=== PATIENT | female | born 1950 | race Two or more races ===

== ENCOUNTER 2018-09-08 11:19 | Outpatient (CLI) | payer MEDICARE ==
[~2018-09-08] VITALS: Ht 152.4 cm; Wt 78.9 kg
== END 2018-09-08 13:19 | disposition home or self-care (01) ==
LOC: ECT 11:19
DX: F33.2 Major depressive disorder, recurrent severe without psychotic features (principal); F34.1 Dysthymic disorder; R73.03 Prediabetes; I70.0 Atherosclerosis of aorta; K21.9 Gastro-esophageal reflux disease without esophagitis; G89.4 Chronic pain syndrome; E78.5 Hyperlipidemia, unspecified; E03.9 Hypothyroidism, unspecified; G50.0 Trigeminal neuralgia; M85.80 Other specified disorders of bone density and structure, unspecified site

== ENCOUNTER 2018-09-12 05:06 | Outpatient (RCR) | payer MEDICARE ==
[~2018-09-12] VITALS: Ht 152.4 cm; Wt 78.9 kg
[2018-09-12] MEDS ORDERED: Methohexital Sodium 500mg Vial IVP ONE (05:07)
[2018-09-12] MEDS ORDERED: Excedrin Migraine tab ONE (05:07)
[2018-09-12] MEDS ORDERED: NS 500ML ONE ×3 (05:07)
[2018-09-12] MEDS ORDERED: Ketorolac 60mg Inj IM ONE ×3 (05:07)
[2018-09-12] MEDS ORDERED: Methohexital Sodium Syr 100mg/10ml IVP ONE ×2 (05:07)
[2018-09-12] MEDS ORDERED: Succinylcholine 20mg/ml 10ml vial ONE ×3 (05:07)
[2018-09-12] MEDS ORDERED: SUMAtriptan 6mg/0.5ml Inj SUBQ ONE ×2 (05:07)
[2018-09-12] MEDS ORDERED: Excedrin tab (non formulary) ONE (05:07)
[2018-09-12 09:20] VITALS: BP 132/60
[2018-09-12] MEDS ORDERED: Sodium Chloride 500ML 500 ML IV ONE (09:38)
[2018-09-12] MEDS ORDERED: Excedrin Migraine tab ORAL PRN (09:38)
[2018-09-12 09:40] VITALS: BP 134/53
[2018-09-12 09:45] VITALS: BP 126/54
[2018-09-12 09:50] VITALS: BP 127/56
[2018-09-12 09:55] VITALS: BP 129/51
[2018-09-14 09:01] VITALS: BP 122/65
[2018-09-14] MEDS ORDERED: Sodium Chloride 500ML 500 ML IV ONE (09:17)
[2018-09-14 09:20] VITALS: BP 141/58
[2018-09-14 09:25] VITALS: BP 136/61
[2018-09-14 09:30] VITALS: BP 135/56
[2018-09-14 09:35] VITALS: BP 137/58
[2018-09-16 08:46] VITALS: BP 128/68
[2018-09-16] MEDS ORDERED: Excedrin Migraine tab ORAL PRN (08:59)
[2018-09-16] MEDS ORDERED: Sodium Chloride 500ML 500 ML IV ONE (08:59)
[2018-09-16 09:00] VITALS: BP 146/55
[2018-09-16 09:05] VITALS: BP 144/61
[2018-09-16 09:10] VITALS: BP 145/50
[2018-09-16 09:15] VITALS: BP 144/58
[2018-09-19] MEDS ORDERED: SUMAtriptan 6mg/0.5ml Inj SUBQ ONE (07:00)
[2018-09-19] MEDS ORDERED: NS 500ML ONE (07:00)
[2018-09-19] MEDS ORDERED: Excedrin Migraine tab ONE (07:00)
[2018-09-19] MEDS ORDERED: Succinylcholine 20mg/ml 10ml vial ONE (07:00)
[2018-09-19] MEDS ORDERED: Methohexital Sodium Syr 100mg/10ml IVP ONE (07:00)
[2018-09-19] MEDS ORDERED: Ketorolac 60mg Inj IM ONE (07:00)
[2018-09-19 09:37] VITALS: BP 119/60
[2018-09-19] MEDS ORDERED: Sodium Chloride 500ML 500 ML IV ONE ×2 (10:03)
[2018-09-19] MEDS ORDERED: Excedrin Migraine tab ORAL PRN (10:03)
[2018-09-19] MEDS ORDERED: Atropine Sulfate 0.4mg/ml inj IVP PRN ×2 (10:03)
[2018-09-19 10:05] VITALS: BP 125/61
[2018-09-19 10:10] VITALS: BP 138/51
[2018-09-19 10:15] VITALS: BP 135/48
[2018-09-19 10:20] VITALS: BP 141/50
[2018-09-21 09:55] VITALS: BP 104/58
[2018-09-21] MEDS ORDERED: Sodium Chloride 500ML 500 ML IV ONE (10:22)
[2018-09-21] MEDS ORDERED: Excedrin Migraine tab ORAL PRN (10:22)
[2018-09-21] MEDS ORDERED: Atropine Sulfate 0.4mg/ml inj IVP PRN (10:22)
[2018-09-21 10:25] VITALS: BP 129/56
[2018-09-21 10:30] VITALS: BP 135/55
[2018-09-21 10:35] VITALS: BP 143/57
[2018-09-21 10:40] VITALS: BP 134/53
[2018-09-21] MEDS ORDERED: Excedrin Migraine tab ONE (13:03)
[2018-09-21] MEDS ORDERED: Ketorolac 60mg Inj IM ONE (13:03)
[2018-09-21] MEDS ORDERED: Methohexital Sodium Syr 100mg/10ml IVP ONE (13:03)
[2018-09-21] MEDS ORDERED: Succinylcholine 20mg/ml 10ml vial ONE (13:03)
[2018-09-21] MEDS ORDERED: NS 500ML ONE (13:03)
[2018-09-21] MEDS ORDERED: SUMAtriptan 6mg/0.5ml Inj SUBQ ONE (13:03)
== END 2018-09-21 | disposition home or self-care (01) ==
LOC: ECT 05:06
DX: F33.2 Major depressive disorder, recurrent severe without psychotic features (principal); F34.1 Dysthymic disorder; R73.03 Prediabetes; E78.5 Hyperlipidemia, unspecified; I70.0 Atherosclerosis of aorta; E03.9 Hypothyroidism, unspecified; K21.9 Gastro-esophageal reflux disease without esophagitis; G50.0 Trigeminal neuralgia; G89.4 Chronic pain syndrome; M85.80 Other specified disorders of bone density and structure, unspecified site
CPT/HCPCS: 90870; J0330; J2405; J3030; J3490; J7040

== ENCOUNTER 2018-09-23 07:17 | Outpatient (RCR) | payer MEDICARE ==
[~2018-09-23] VITALS: Ht 152.4 cm; Wt 78.9 kg
[2018-09-23] MEDS ORDERED: SUMAtriptan 6mg/0.5ml Inj SUBQ ONE (07:18)
[2018-09-23] MEDS ORDERED: Succinylcholine 20mg/ml 10ml vial ONE (07:18)
[2018-09-23] MEDS ORDERED: Methohexital Sodium 500mg Vial IVP ONE (07:18)
[2018-09-23] MEDS ORDERED: Ketorolac 60mg Inj IM ONE (07:18)
[2018-09-23] MEDS ORDERED: NS 500ML ONE (07:18)
[2018-09-23] MEDS ORDERED: Excedrin tab (non formulary) ONE (07:18)
[2018-09-23 09:19] VITALS: BP 151/61
[2018-09-23] MEDS ORDERED: Excedrin Migraine tab ORAL PRN (09:54)
[2018-09-23] MEDS ORDERED: Atropine Sulfate 0.4mg/ml inj IVP PRN (09:54)
[2018-09-23] MEDS ORDERED: Sodium Chloride 500ML 500 ML IV ONE (09:54)
[2018-09-23 09:55] VITALS: BP 134/74
[2018-09-23 10:00] VITALS: BP 143/64
[2018-09-23 10:05] VITALS: BP 155/60
[2018-09-23 10:10] VITALS: BP 151/60
[2018-09-28] MEDS ORDERED: Excedrin Migraine tab ONE (07:00)
[2018-09-28] MEDS ORDERED: SUMAtriptan 6mg/0.5ml Inj SUBQ ONE (07:00)
[2018-09-28] MEDS ORDERED: Succinylcholine 20mg/ml 10ml vial ONE (07:00)
[2018-09-28] MEDS ORDERED: Ketorolac 60mg Inj IM ONE (07:00)
[2018-09-28] MEDS ORDERED: NS 500ML ONE (07:00)
[2018-09-28] MEDS ORDERED: Methohexital Sodium Syr 100mg/10ml IVP ONE (07:00)
[2018-09-28 10:05] VITALS: BP 131/65
[2018-09-28] MEDS ORDERED: Excedrin Migraine tab ORAL PRN (10:19)
[2018-09-28] MEDS ORDERED: Sodium Chloride 500ML 500 ML IV ONE (10:19)
[2018-09-28 10:20] VITALS: BP 140/59
[2018-09-28 10:25] VITALS: BP 132/53
[2018-09-28 10:30] VITALS: BP 128/54
[2018-09-28 10:35] VITALS: BP 127/51
[2018-10-19] MEDS ORDERED: SUMAtriptan 6mg/0.5ml Inj SUBQ ONE (07:00)
[2018-10-19] MEDS ORDERED: Excedrin tab (non formulary) ONE (07:00)
[2018-10-19] MEDS ORDERED: Succinylcholine 20mg/ml 10ml vial ONE (07:00)
[2018-10-19] MEDS ORDERED: NS 500ML ONE (07:00)
[2018-10-19] MEDS ORDERED: Ketorolac 60mg Inj IM ONE (07:00)
[2018-10-19] MEDS ORDERED: Methohexital Sodium Syr 100mg/10ml IVP ONE (07:00)
[2018-10-19 11:20] VITALS: BP 130/78
[2018-10-19] MEDS ORDERED: Excedrin Migraine tab ORAL PRN (11:39)
[2018-10-19] MEDS ORDERED: Sodium Chloride 500ML 500 ML IV ONE (11:39)
[2018-10-19 11:40] VITALS: BP 151/66
[2018-10-19 11:45] VITALS: BP 147/62
[2018-10-19 11:50] VITALS: BP 148/62
[2018-10-19 11:55] VITALS: BP 138/64
[2018-10-21 09:27] VITALS: BP 148/72
[2018-10-21] MEDS ORDERED: Excedrin Migraine tab ORAL PRN (09:41)
[2018-10-21] MEDS ORDERED: Sodium Chloride 500ML 500 ML IV ONE (09:41)
[2018-10-21 09:45] VITALS: BP 154/68
[2018-10-21 09:50] VITALS: BP 160/66
[2018-10-21 09:55] VITALS: BP 162/67
[2018-10-21 09:56] VITALS: BP 158/71
[2018-10-21] MEDS ORDERED: NS 500ML ONE (11:56)
[2018-10-21] MEDS ORDERED: Excedrin Migraine tab ONE (11:56)
[2018-10-21] MEDS ORDERED: Succinylcholine 20mg/ml 10ml vial ONE (11:56)
[2018-10-21] MEDS ORDERED: SUMAtriptan 6mg/0.5ml Inj SUBQ ONE (11:56)
[2018-10-21] MEDS ORDERED: Ketorolac 60mg Inj IM ONE (11:56)
[2018-10-21] MEDS ORDERED: Methohexital Sodium Syr 100mg/10ml IVP ONE (11:56)
== END 2018-10-21 | disposition home or self-care (01) ==
LOC: ECT 07:17
DX: F33.2 Major depressive disorder, recurrent severe without psychotic features (principal)
CPT/HCPCS: 90870; J0330; J2405; J3030; J3490; J7040

== ENCOUNTER 2018-10-24 07:24 | Outpatient (RCR) | payer MEDICARE ==
[~2018-10-24] VITALS: Ht 152.4 cm; Wt 79.2 kg
[2018-10-24] MEDS ORDERED: Excedrin Migraine tab ONE (07:25)
[2018-10-24] MEDS ORDERED: NS 500ML ONE ×3 (07:25)
[2018-10-24] MEDS ORDERED: Succinylcholine 20mg/ml 10ml vial ONE ×2 (07:25)
[2018-10-24] MEDS ORDERED: SUMAtriptan 6mg/0.5ml Inj SUBQ ONE ×2 (07:25)
[2018-10-24] MEDS ORDERED: Ketorolac 60mg Inj IM ONE ×2 (07:25)
[2018-10-24] MEDS ORDERED: Methohexital Sodium Syr 100mg/10ml IVP ONE ×2 (07:25)
[2018-10-24] MEDS ORDERED: Excedrin tab (non formulary) ONE (07:25)
[2018-10-24 10:22] VITALS: BP 137/76
[2018-10-24] MEDS ORDERED: Sodium Chloride 500ML 500 ML IV ONE (10:48)
[2018-10-24] MEDS ORDERED: Excedrin Migraine tab ORAL PRN (10:48)
[2018-10-24 10:50] VITALS: BP 157/71
[2018-10-24 10:55] VITALS: BP 170/70
[2018-10-24 11:00] VITALS: BP_SYST 157; BP_SYST 173; BP_DIAS 78; BP_DIAS 79
[2018-10-26] MEDS ORDERED: NS 500ML ONE (08:00)
[2018-10-26] MEDS ORDERED: Excedrin Migraine tab ONE (08:00)
[2018-10-26] MEDS ORDERED: SUMAtriptan 6mg/0.5ml Inj SUBQ ONE (08:00)
[2018-10-26] MEDS ORDERED: Ketorolac 60mg Inj IM ONE (08:00)
[2018-10-26] MEDS ORDERED: Methohexital Sodium Syr 100mg/10ml IVP ONE (08:00)
[2018-10-26] MEDS ORDERED: Succinylcholine 20mg/ml 10ml vial ONE (08:00)
[2018-10-26 09:19] VITALS: BP 110/62
[2018-10-26 09:45] VITALS: BP 115/45
[2018-10-26 09:50] VITALS: BP 103/48
[2018-10-26 09:55] VITALS: BP 111/47
[2018-10-26 10:00] VITALS: BP 113/51
[2018-10-26] MEDS ORDERED: Excedrin Migraine tab ORAL PRN (14:30)
[2018-10-26] MEDS ORDERED: Sodium Chloride 500ML 500 ML IV ONE (14:30)
[2018-10-28] MEDS ORDERED: Ketorolac 60mg Inj IM ONE (08:00)
[2018-10-28] MEDS ORDERED: NS 500ML ONE (08:00)
[2018-10-28] MEDS ORDERED: SUMAtriptan 6mg/0.5ml Inj SUBQ ONE (08:00)
[2018-10-28] MEDS ORDERED: Methohexital Sodium Syr 100mg/10ml IVP ONE (08:00)
[2018-10-28] MEDS ORDERED: Excedrin Migraine tab ONE (08:00)
[2018-10-28] MEDS ORDERED: Succinylcholine 20mg/ml 10ml vial ONE (08:00)
[2018-10-28 08:55] VITALS: BP 126/61
[2018-10-28] MEDS ORDERED: Excedrin Migraine tab ORAL PRN (09:18)
[2018-10-28] MEDS ORDERED: Sodium Chloride 500ML 500 ML IV ONE (09:18)
[2018-10-28 09:20] VITALS: BP 148/51
[2018-10-28 09:25] VITALS: BP 154/54
[2018-10-28 09:30] VITALS: BP 150/56
[2018-10-28 09:35] VITALS: BP 144/61
[2018-10-31] MEDS ORDERED: SUMAtriptan 6mg/0.5ml Inj SUBQ ONE (08:00)
[2018-10-31] MEDS ORDERED: Excedrin Migraine tab ONE (08:00)
[2018-10-31] MEDS ORDERED: Succinylcholine 20mg/ml 10ml vial ONE (08:00)
[2018-10-31] MEDS ORDERED: NS 500ML ONE (08:00)
[2018-10-31] MEDS ORDERED: Methohexital Sodium Syr 100mg/10ml IVP ONE (08:00)
[2018-10-31] MEDS ORDERED: Ketorolac 60mg Inj IM ONE (08:00)
[2018-10-31 08:44] VITALS: BP 128/68
[2018-10-31] MEDS ORDERED: Excedrin Migraine tab ORAL PRN (08:59)
[2018-10-31] MEDS ORDERED: Sodium Chloride 500ML 500 ML IV ONE (08:59)
[2018-10-31 09:00] VITALS: BP 136/54
[2018-10-31 09:05] VITALS: BP 141/56
[2018-10-31 09:10] VITALS: BP 145/56
[2018-10-31 09:15] VITALS: BP 146/58
[2018-11-02] MEDS ORDERED: Ketorolac 60mg Inj IM ONE (08:00)
[2018-11-02] MEDS ORDERED: SUMAtriptan 6mg/0.5ml Inj SUBQ ONE (08:00)
[2018-11-02] MEDS ORDERED: NS 500ML ONE (08:00)
[2018-11-02] MEDS ORDERED: Excedrin Migraine tab ONE (08:00)
[2018-11-02] MEDS ORDERED: Succinylcholine 20mg/ml 10ml vial ONE (08:00)
[2018-11-02] MEDS ORDERED: Methohexital Sodium Syr 100mg/10ml IVP ONE (08:00)
[2018-11-02 09:07] VITALS: BP 125/61
[2018-11-02] MEDS ORDERED: Excedrin Migraine tab ORAL PRN (09:31)
[2018-11-02] MEDS ORDERED: Sodium Chloride 500ML 500 ML IV ONE (09:31)
[2018-11-02 09:35] VITALS: BP 133/59
[2018-11-02 09:40] VITALS: BP 139/56
[2018-11-02 09:45] VITALS: BP 133/65
[2018-11-02 09:50] VITALS: BP 141/53
[2018-11-04 09:01] VITALS: BP 151/71
[2018-11-04] MEDS ORDERED: Sodium Chloride 500ML 500 ML IV ONE (09:16)
[2018-11-04] MEDS ORDERED: Excedrin Migraine tab ORAL PRN (09:16)
[2018-11-04 09:20] VITALS: BP 146/63
[2018-11-04 09:25] VITALS: BP 135/51
[2018-11-04 09:30] VITALS: BP 140/67
[2018-11-04 09:31] VITALS: BP 142/69
[2018-11-09] MEDS ORDERED: Methohexital Sodium Syr 100mg/10ml IVP ONE (06:00)
[2018-11-09] MEDS ORDERED: NS 500ML ONE (06:00)
[2018-11-09] MEDS ORDERED: Succinylcholine 20mg/ml 10ml vial ONE (06:00)
[2018-11-09] MEDS ORDERED: SUMAtriptan 6mg/0.5ml Inj SUBQ ONE (06:00)
[2018-11-09] MEDS ORDERED: Excedrin Migraine tab ONE (06:00)
[2018-11-09] MEDS ORDERED: Ketorolac 60mg Inj IM ONE (06:00)
[2018-11-09 10:14] VITALS: BP 136/76
[2018-11-09] MEDS ORDERED: Excedrin Migraine tab ORAL PRN (10:31)
[2018-11-09] MEDS ORDERED: Sodium Chloride 500ML 500 ML IV ONE (10:31)
[2018-11-09 10:35] VITALS: BP 118/60
[2018-11-09 10:40] VITALS: BP 126/67
[2018-11-09 10:45] VITALS: BP 133/88
[2018-11-09 10:50] VITALS: BP 119/78
[2018-11-14] MEDS ORDERED: SUMAtriptan 6mg/0.5ml Inj SUBQ ONE (06:00)
[2018-11-14] MEDS ORDERED: Methohexital Sodium Syr 100mg/10ml IVP ONE (06:00)
[2018-11-14] MEDS ORDERED: NS 500ML ONE (06:00)
[2018-11-14] MEDS ORDERED: Ketorolac 60mg Inj IM ONE (06:00)
[2018-11-14] MEDS ORDERED: Succinylcholine 20mg/ml 10ml vial ONE (06:00)
[2018-11-14] MEDS ORDERED: Excedrin Migraine tab ONE (06:00)
[2018-11-14 08:38] VITALS: BP 130/66
[2018-11-14] MEDS ORDERED: Excedrin Migraine tab ORAL PRN (08:54)
[2018-11-14 08:55] VITALS: BP 157/66
[2018-11-14 09:00] VITALS: BP 128/68
[2018-11-14 09:05] VITALS: BP 150/63
[2018-11-14 09:10] VITALS: BP 149/54
[2018-11-18] MEDS ORDERED: Excedrin Migraine tab ONE (07:00)
[2018-11-18] MEDS ORDERED: NS 500ML ONE (07:00)
[2018-11-18] MEDS ORDERED: Ketorolac 60mg Inj IM ONE (07:00)
[2018-11-18] MEDS ORDERED: Methohexital Sodium Syr 100mg/10ml IVP ONE (07:00)
[2018-11-18] MEDS ORDERED: SUMAtriptan 6mg/0.5ml Inj SUBQ ONE (07:00)
[2018-11-18] MEDS ORDERED: Succinylcholine 20mg/ml 10ml vial ONE (07:00)
[2018-11-18 08:41] VITALS: BP 147/75
[2018-11-18] MEDS ORDERED: Excedrin Migraine tab ORAL PRN (08:54)
[2018-11-18] MEDS ORDERED: Sodium Chloride 500ML 500 ML IV ONE (08:54)
[2018-11-18 08:55] VITALS: BP 147/56
[2018-11-18 09:00] VITALS: BP 95/45
[2018-11-18 09:05] VITALS: BP 158/64
[2018-11-18 09:10] VITALS: BP 154/67
== END 2018-11-21 | disposition home or self-care (01) ==
LOC: ECT 07:24
DX: F33.2 Major depressive disorder, recurrent severe without psychotic features (principal); E78.5 Hyperlipidemia, unspecified; G43.909 Migraine, unspecified, not intractable, without status migrainosus; K21.9 Gastro-esophageal reflux disease without esophagitis; E03.9 Hypothyroidism, unspecified; G50.0 Trigeminal neuralgia
CPT/HCPCS: 90870; J0330; J2405; J3030; J7040

== ENCOUNTER 2018-11-23 06:01 | Outpatient (RCR) | payer MEDICARE ==
[~2018-11-23] VITALS: Ht 152.4 cm; Wt 79.2 kg
[2018-11-23] MEDS ORDERED: Ketorolac 60mg Inj IM ONE (06:02)
[2018-11-23] MEDS ORDERED: SUMAtriptan 6mg/0.5ml Inj SUBQ ONE (06:02)
[2018-11-23] MEDS ORDERED: Methohexital Sodium Syr 100mg/10ml IVP ONE (06:02)
[2018-11-23] MEDS ORDERED: Succinylcholine 20mg/ml 10ml vial ONE (06:02)
[2018-11-23] MEDS ORDERED: Excedrin Migraine tab ONE (06:02)
[2018-11-23] MEDS ORDERED: NS 500ML ONE (06:02)
[2018-11-23 09:48] VITALS: BP 154/73
[2018-11-23 10:04] VITALS: BP 161/71
[2018-11-23] MEDS ORDERED: Excedrin Migraine tab ORAL PRN (10:04)
[2018-11-23 10:09] VITALS: BP 164/74
[2018-11-23 10:14] VITALS: BP 160/79
[2018-11-23 10:19] VITALS: BP 158/73
[2018-12-02] MEDS ORDERED: Succinylcholine 20mg/ml 10ml vial ONE (08:00)
[2018-12-02] MEDS ORDERED: Ketorolac 60mg Inj IM ONE (08:00)
[2018-12-02] MEDS ORDERED: SUMAtriptan 6mg/0.5ml Inj SUBQ ONE (08:00)
[2018-12-02] MEDS ORDERED: Excedrin Migraine tab ONE (08:00)
[2018-12-02] MEDS ORDERED: Methohexital Sodium Syr 100mg/10ml IVP ONE (08:00)
[2018-12-02] MEDS ORDERED: NS 500ML ONE (08:00)
[2018-12-02 10:43] VITALS: BP 151/70
[2018-12-02] MEDS ORDERED: Excedrin Migraine tab ORAL PRN (10:54)
[2018-12-02 10:55] VITALS: BP 160/40
[2018-12-02 11:00] VITALS: BP 156/61
[2018-12-02 11:05] VITALS: BP 154/66
[2018-12-02 11:10] VITALS: BP 156/57
== END 2018-12-22 | disposition home or self-care (01) ==
LOC: ECT 06:01
DX: F33.2 Major depressive disorder, recurrent severe without psychotic features (principal); F34.1 Dysthymic disorder; R73.03 Prediabetes; E78.5 Hyperlipidemia, unspecified; E03.9 Hypothyroidism, unspecified; K21.9 Gastro-esophageal reflux disease without esophagitis; M85.80 Other specified disorders of bone density and structure, unspecified site; G89.4 Chronic pain syndrome; G50.0 Trigeminal neuralgia; I70.0 Atherosclerosis of aorta
CPT/HCPCS: 90870; J0330; J2405; J3030; J7040